=== PATIENT | male | born 1950 | race Caucasian/White ===

== ENCOUNTER 2023-03-17 09:38 | Outpatient (CLI) | payer MEDICARE, BC ==
[2023-03-17 12:19] LABS: BILIRUBIN,URINE NEGATIVE (NEGATIVE); COLOR,URINE YELLOW (YELLOW); LEUKOCYTE ESTERASE ,URINE NEGATIVE (NEGATIVE); NITRITE, URINE NEGATIVE (NEGATIVE); PROTEIN,URINE NEGATIVE (NEGATIVE); UGLUCOSE NEGATIVE (NEGATIVE); UROBILINOGEN,URINE 0.2 EU/dL (0.2)
[2023-03-17 12:37] LABS: BASOPHILS % (AUTO) 0.5 % (0.0-2.0); EOSINOPHILS % (AUTO) 2.6 % (0.0-6.0); HEMATOCRIT 44 % (39-51); HEMOGLOBIN 14.7 g/dL (13.5-17.5); LYMPHOCYTES # (AUTO) 1.8 K/uL (0.8-4.8); LYMPHOCYTES % (AUTO) 27.9 % (20.0-44.0); MEAN CORPUSCULAR HGB CONC 33 g/dl (31.0-36.0); MEAN CORPUSCULAR VOLUME 99 fL (80-96); MONOCYTES # (AUTO) 0.7 K/uL (0.1-1.30); MONOCYTES % (AUTO) 11.7 % (2.0-12.0); NEUTROPHILS # (AUTO) 3.6 K/uL (1.8-8.9); NEUTROPHILS % (AUTO) 57.3 % (43.0-81.0); PLATELET COUNT (AUTO) 314 K/uL (150-450); RED BLOOD CELL COUNT(AUTO) 4.48 MIL/uL (4.5-6.0); WHITE BLOOD COUNT (AUTO) 6.3 K/uL (4.3-11.0)
[2023-03-17 12:41] LABS: POTASSIUM 4.9 mmol/L (3.5-5.1)
[2023-03-26] MEDS ORDERED: HYDR-3972 PO (09:30)
== END 2023-03-17 23:59 | disposition home or self-care (01) ==
LOC: LAB 09:38
PROVIDERS: ATTEND Internal Medicine Pulmonary Disease
DX: Z01.818 Encounter for other preprocedural examination (principal); Z20.822 Contact with and (suspected) exposure to COVID-19
CPT/HCPCS: 71045; 93005; 85025; 80048; 81003; 36415; 85730; U0003; C9803

== ENCOUNTER 2023-03-25 05:38 | Inpatient (IN) | payer MEDICARE, BC ==
[~2023-03-25] VITALS: Ht 177.8 cm; Wt 72.6 kg
[2023-03-25] MEDS ORDERED: OXYMETAZOLINE HCL NASAL SPRAY 30 ML BOTTLE NS ONE (06:51)
[2023-03-25] MEDS ORDERED: ANESTHESIA TRAY IN PYXIS 1 EA TRAY MC ONE (06:52)
[2023-03-25] MEDS ORDERED: DEXAMETHASONE SOD PHOSPHATE 10 MG/ML VIAL ONE (06:52)
[2023-03-25] MEDS ORDERED: LIDOCAINE 2%-EPI 1:100,000 30 ML VIAL ONE (06:52)
[2023-03-25] MEDS ORDERED: VANCOMYCIN 1 GM VIAL ONE (06:52)
[2023-03-25] MEDS ORDERED: MIDAZOLAM HCL 2 MG/2ML VIAL ONE (07:10)
[2023-03-25] MEDS ORDERED: FAMOTIDINE/PF INJ 20 MG/2 ML VIAL IV ONE (07:10)
[2023-03-25] MEDS ORDERED: FENTANYL PF 100MCG/2ML AMPUL ONE (07:10)
[2023-03-25] MEDS ORDERED: KETAMINE HCL (500MG/10ML) 50 MG/ML VIAL ONE (07:10)
[2023-03-25] MEDS ORDERED: ROCURONIUM BROMIDE 50 MG/5 ML ONE (07:11)
--- NOTE | 2023-03-25 07:20 | NUR ---
MS (DAY SURGERY) SQUAD SERGEANT NOTE PATIENT ARRIVED TO THE UNIT AT AROUND 0555, AMBULATORY. ALERT AND ORIENTED X4. ABLE TO MAKE NEEDS KNOWN. AFEBRILE AND NOT IN ANY FORM OF ACUTE DISTRESS. BREATHING EVEN AND NON LABORED. PATIENT IS FOR SURGERY TODAY UNDER DR. Juancarlos SOUZA AT 0730. DIRECTED TO ROOM 308-2. CONSENT FOR PROPOSED PROCEDURE SIGNED AND SECURED. VITALS TAKEN AND RECORDED. INSERTED IV LINE ON LFA 20G-SL, TOLERATED WELL. PATIENT MAINTAINED ON NPO. LAST MEAL INTAKE WAS 03/24/23 AT 1800 AND PATIENT SAID THAT HE TOOK HIS BP MEDS WITH SIPS OF WATER TODAY 03/25/23 AT AROUND 0430. REPORT WAS GIVEN TO OFFSET PRESS OPERATORNOEMY LOVELL AND MENTIONED THAT PATIENT'S LATEST PULSE IS 43. PRE-OP CHECKLIST DONE. PATIENT WAS PICKED UP BY 2 OR STAFFS AT AROUND 0655, IN STABLE CONDITION AND NOT IN ANY FORM OF ACUTE DISTRESS. ALL BELONGING PROPERLY DOCUMENTED TOGETHER WITH ASSIGNED STAFF.
[2023-03-25] MEDS ORDERED: ONDANSETRON HCL/PF 4 MG/2 ML VIAL IV PRN (11:00)
[2023-03-25] MEDS ORDERED: HYDROMORPHONE 1 MG/1 ML DISP.SYRIN IV PRN (11:00)
[2023-03-25] MEDS ORDERED: IV NS 0.9% 1,000 ML IV PRN (11:00)
[2023-03-25] MEDS ORDERED: ACETAMINOPHEN 325 MG TABLET PO PRN (11:00)
--- NOTE | 2023-03-25 11:20 | NUR ---
MS RN NOTES RECEIVED PATIENT FROM SURGERY VIA STRETCHER IN STABLE CONDITION. ALERT/ORIENTED X 4. ON ROOM AIR, NOT IN ANY FORM OF DISTRESS AT THIS TIME. VITAL SIGNS WITHIN NORMAL LIMITS. NO ACTIVE BLEEDING NOTED. PATIENT DENIES DISCOMFORT AT THIS TIME. ORDER RECEIVED AND CARRIED OUT. INFORMED HOSPITALIST LELO OF ADMISSION AND AND PATIENT'S REFERRAL FOR PULMO AND CARDIO. WILL CONTINUE WITH THE PLAN OF CARE.
[2023-03-25] MEDS ORDERED: VALS160T29 PO (11:31)
[2023-03-25 16:00] VITALS: BP 132/87
--- NOTE | 2023-03-25 19:01 | NUR ---
MS RN CLOSING NOTES PATIENT ALERT/ORIENTED X4, ON ROOM AIR WITH EVEN AND UNLABORED BREATHING. NO COMPLAIN OF PAIN VERBALIZED BY THE PATIENT. WITH IV ACCESS ON LEFT FOREARM G#20, PATENT AND INTACT, ON SALINE LOCK. NO ACTIVE BLEEDING NOTED. WILL ENDORSE ACCORDINGLY.
--- NOTE | 2023-03-25 19:30 | NUR ---
MS RN Opening Note Received patient in bed; awake, alert and oriented x 4. On room air; tolerating well. Not in any form of respiratory or cardiac distress. No c/o pain or discomfort. With IV access on left forearm 20g; patent, intact and saline locked. Able to make needs known. Safety precautions implemented: call light and table within reach, side rails up x 3, bed in lowest locked position. Will continue to monitor throughout shift.
[2023-03-25 20:00] VITALS: BP 154/77
--- NOTE | 2023-03-25 20:50 | NUR ---
RN Note Patient with order of NS 1L @ 30 ml/hr; refused to have an IVF infusion. Per patient, he is able to drink clear liquids and don't need ivf.
--- NOTE | 2023-03-26 06:40 | NUR ---
MS RN Closing Note Patient in bed; awake, a/o x 4. Stable on room air. In no acute distress. Denies pain or discomfort. With IV access on left forearm 20g; patent, intact and saline locked. All needs attended. Due med given as ordered. Safety precautions maintained: call light and table within reach, side rails up x 3, bed in lowest locked position. Endorsed to morning shift for continuity of care.
[2023-03-26 07:00] VITALS: BP 111/60
--- NOTE | 2023-03-26 07:40 | NUR ---
MS RN OPENING NOTES RECEIVED PATIENT AWAKE IN BED, A/OX4. ON ROOM AIR, TOLERATING WELL, NOT IN ANY FORM OF RESPIRATORY DISTRESS, WITH NON LABORED, AND EVEN BREATHING PATTERN. NO COMPLAINTS OF PAIN OR DISCOMFORT AT THIS TIME. WITH IV ACCESS ON LEFT FOREARM G#20 PATENT, INTACT, FLUSHING WELL, ON SALINE LOCK. SAFETY PRECAUTIONS MAINTAINED, BED IN LOWEST POSITION, HOB ELEVATED, CALL LIGHT AND TABLE WITHIN EASY REACH, SIDE RAILS UPX3. WILL CONTINUE TO MONITOR AND ASSIST THROUGHOUT THE SHIFT.
[2023-03-26] MEDS ORDERED: HYDR-3972 PO (09:30)
--- NOTE | 2023-03-26 11:06 | NUR ---
RN NOTES: RECEIVED VERBAL ORDER FROM DR LIND ADVANCE DIET TO SOFT. ORDER NOTED AND CARRIED OUT.
--- NOTE | 2023-03-26 12:15 | NUR ---
MS GARMENT INSPECTOR NOTES RECEIVED ORDER FOR DISCHARGE GIVEN BY NESTOR RIVERA FOR DC HOME. PATIENT IS A/O X4, ABLE TO MAKE NEEDS KNOWN. STABLE ON ROOM AIR, NO SOB OR S/S OF DISTRESS NOTED. DISCHARGE INSTRUCTIONS GIVEN, PATIENT WAS INSTRUCTED TO FOLLOW UP WITH DR. SOUZA NEXT WEEK. PATIENT VERBALIZED UNDERSTANDING. ALL BELONGINGS ACCOUNTED FOR, BELONGING SHEET SIGNED. PATIENT DENIES ANY PAIN OR DISCOMFORT AT THIS TIME. IV ACCESS REMOVED. EXIT CARE FOLDER GIVEN TO PATIENT . PATIENT LEFT IN STABLE CONDITION WITH FRIEND VIA PRIVATE CAR.
[2023-03-27] MEDS ORDERED: VALSARTAN 80 MG TABLET PO SCH (09:00)
== END 2023-03-26 14:28 | disposition home or self-care (01) | DRG 141 ==
LOC: DS 05:38 → MED 05:39
PROVIDERS: ADMIT Dentist Oral and Maxillofacial Surgery; ATTEND Nurse Practitioner Acute Care
PROC: 0NBV0ZX Excision of Left Mandible, Open Approach, Diagnostic (ICD-10-PCS; principal; 2023-03-25)
PROC: 0NSR04Z Reposition Maxilla with Internal Fixation Device, Open Approach (ICD-10-PCS; 2023-03-25)
PROC: 0NSV04Z Reposition Left Mandible with Internal Fixation Device, Open Approach (ICD-10-PCS; 2023-03-25)
PROC: 09BQ0ZZ Excision of Right Maxillary Sinus, Open Approach (ICD-10-PCS; 2023-03-25)
PROC: 09BR0ZZ Excision of Left Maxillary Sinus, Open Approach (ICD-10-PCS; 2023-03-25)
PROC: 0NUR07Z Supplement Maxilla with Autologous Tissue Substitute, Open Approach (ICD-10-PCS; 2023-03-25)
PROC: 0WB30ZX Excision of Oral Cavity and Throat, Open Approach, Diagnostic (ICD-10-PCS; 2023-03-25)
PROC: 0NST0ZZ Reposition Right Mandible, Open Approach (ICD-10-PCS; 2023-03-25)
PROC: 0NUT0KZ Supplement Right Mandible with Nonautologous Tissue Substitute, Open Approach (ICD-10-PCS; 2023-03-25)
PROC: 0NBR0ZX Excision of Maxilla, Open Approach, Diagnostic (ICD-10-PCS; 2023-03-25)
DX: D16.5 Benign neoplasm of lower jaw bone (principal); M84.68XA Pathological fracture in other disease, other site, initial encounter for fracture; D16.4 Benign neoplasm of bones of skull and face; M27.2 Inflammatory conditions of jaws; J32.0 Chronic maxillary sinusitis; D49.2 Neoplasm of unspecified behavior of bone, soft tissue, and skin; I10 Essential (primary) hypertension; R94.31 Abnormal electrocardiogram [ECG] [EKG]; I44.1 Atrioventricular block, second degree; Z86.73 Personal history of transient ischemic attack (TIA), and cerebral infarction without residual deficits; Z87.74 Personal history of (corrected) congenital malformations of heart and circulatory system; F17.200 Nicotine dependence, unspecified, uncomplicated; Z79.899 Other long term (current) drug therapy
CPT/HCPCS: 82962-TC; 87081-TC; 88305-TC; 88311-TC; 88312-TC; A4223; C1713; G0378; J1100; J2250; J2370; J2405; J2704; J2765; J3010; J3370; J3490; J7030

== ENCOUNTER 2023-11-11 08:08 | Inpatient (IN) | payer MEDICARE, BC ==
[~2023-11-11] VITALS: Ht 177.8 cm; Wt 71.4 kg
[2023-11-11] VITALS (8 sets, daily range): BP systolic 107–156; BP diastolic 67–85; TEMP 97.7–99.2; O2SAT 97–100
[~2023-11-11 08:08] MED LIST: HYDR-3972 PO; VALS160T29 PO
[2023-11-11] MEDS ORDERED: LIDOCAINE 2%-EPI 1:100,000 30 ML VIAL ONE (09:43)
[2023-11-11] MEDS ORDERED: VANCOMYCIN 1 GM VIAL ONE (09:43)
[2023-11-11] MEDS ORDERED: OXYMETAZOLINE HCL NASAL SPRAY 30 ML BOTTLE NS ONE (09:43)
[2023-11-11] MEDS ORDERED: dexaMETHasone SOD PHOSPHATE 2 ML ONE (09:43)
[2023-11-11] MEDS ORDERED: FENTANYL PF 100MCG/2ML AMPUL ONE (09:52)
[2023-11-11] MEDS ORDERED: FAMOTIDINE/PF INJ 20 MG/2 ML VIAL IV ONE (09:53)
[2023-11-11] MEDS ORDERED: MIDAZOLAM HCL 2 MG/2ML VIAL ONE (09:53)
[2023-11-11] MEDS ORDERED: ROCURONIUM BROMIDE 50 MG/5 ML ONE (09:53)
[2023-11-11] MEDS ORDERED: LABETALOL HCL IV 100MG VIAL ONE (11:18)
[2023-11-11] MEDS ORDERED: IV NS 0.9% 1,000 ML IV PRN (13:00)
[2023-11-11] MEDS ORDERED: ONDANSETRON HCL/PF 4 MG/2 ML VIAL IV PRN (13:00)
[2023-11-11] MEDS ORDERED: ACETAMINOPHEN 325 MG TABLET PO PRN (13:30)
[2023-11-11] MEDS ORDERED: HYDROMORPHONE 1 MG/1 ML DISP.SYRIN IV PRN (13:30)
[2023-11-11] MEDS ORDERED: VANCOMYCIN 1 GM in IV D5W 250ml IV SCH (23:00)
[2023-11-12 08:00] VITALS: BP 112/65; TEMP 97.5; O2SAT 98
== END 2023-11-12 10:00 | disposition home or self-care (01) | DRG 908 ==
LOC: DS 08:08 → MED 08:10
PROVIDERS: ADMIT Internal Medicine; ATTEND Internal Medicine
PROC: 0NPW04Z Removal of Internal Fixation Device from Facial Bone, Open Approach (ICD-10-PCS; principal; 2023-11-12)
PROC: 0NSR04Z Reposition Maxilla with Internal Fixation Device, Open Approach (ICD-10-PCS; 2023-11-12)
PROC: 0NUR07Z Supplement Maxilla with Autologous Tissue Substitute, Open Approach (ICD-10-PCS; 2023-11-12)
PROC: 09BQ0ZZ Excision of Right Maxillary Sinus, Open Approach (ICD-10-PCS; 2023-11-12)
PROC: 0NBR0ZX Excision of Maxilla, Open Approach, Diagnostic (ICD-10-PCS; 2023-11-12)
PROC: 0NBV0ZX Excision of Left Mandible, Open Approach, Diagnostic (ICD-10-PCS; 2023-11-12)
PROC: 0NBT0ZX Excision of Right Mandible, Open Approach, Diagnostic (ICD-10-PCS; 2023-11-12)
DX: T86.831 Bone graft failure (principal); S02.40CK Maxillary fracture, right side, subsequent encounter for fracture with nonunion; T85.79XA Infection and inflammatory reaction due to other internal prosthetic devices, implants and grafts, initial encounter; S02.609K Fracture of mandible, unspecified, subsequent encounter for fracture with nonunion; I10 Essential (primary) hypertension; M27.2 Inflammatory conditions of jaws; Y83.2 Surgical operation with anastomosis, bypass or graft as the cause of abnormal reaction of the patient, or of later complication, without mention of misadventure at the time of the procedure; Z86.73 Personal history of transient ischemic attack (TIA), and cerebral infarction without residual deficits; F17.200 Nicotine dependence, unspecified, uncomplicated; Z79.899 Other long term (current) drug therapy; I34.0 Nonrheumatic mitral (valve) insufficiency; Y92.009 Unspecified place in unspecified non-institutional (private) residence as the place of occurrence of the external cause; J32.9 Chronic sinusitis, unspecified; M89.38 Hypertrophy of bone, other site; Y83.8 Other surgical procedures as the cause of abnormal reaction of the patient, or of later complication, without mention of misadventure at the time of the procedure; X58.XXXD Exposure to other specified factors, subsequent encounter
CPT/HCPCS: 87081-TC; A4223; C1713; G0378; J1100; J2250; J2405; J2704; J2765; J3010; J3370; J3490; J7030; J7060

== ENCOUNTER 2024-03-20 10:00 | Outpatient (CLI) | payer MEDICARE, BC ==
[2024-03-20 11:25] LABS: BASOPHILS % (AUTO) 0.6 % (0.0-2.0); EOSINOPHILS # (AUTO) 0.1 K/uL (0.0-0.7); EOSINOPHILS % (AUTO) 1.9 % (0.0-6.0); HEMATOCRIT 45 % (39-51); HEMOGLOBIN 15.2 g/dL (13.5-17.5); LYMPHOCYTES # (AUTO) 1.6 K/uL (0.8-4.8); LYMPHOCYTES % (AUTO) 22.7 % (20.0-44.0); MEAN CORPUSCULAR HEMOGLOBIN 33 PG (26.0-33.0); MEAN CORPUSCULAR HGB CONC 34 g/dl (31.0-36.0); MEAN CORPUSCULAR VOLUME 96 fL (80-96); MONOCYTES # (AUTO) 0.7 K/uL (0.1-1.30); MONOCYTES % (AUTO) 9.8 % (2.0-12.0); NEUTROPHILS # (AUTO) 4.5 K/uL (1.8-8.9); PLATELET COUNT (AUTO) 277 K/uL (150-450); RED BLOOD CELL COUNT(AUTO) 4.62 MIL/uL (4.5-6.0); RED CELL DISTRIBUTION WIDTH 13.9 % (11.5-15.0)
[2024-03-20 11:32] LABS: INR 1.02 (0.91-1.10); PARTIAL THROMBOPLASTIN TIME 23.2 SEC (24.3-34.3); PROTHROMBIN TIME 10.8 SECS (9.2-11.1)
[2024-03-20 11:39] LABS: ALANINE AMINOTRANSFERASE 17 U/L (12-78); ALBUMIN 3.2 g/dL (3.4-5.0); ALKALINE PHOSPHATASE 74 U/L (46-116); ASPARTATE AMINOTRANSFERASE 9 U/L (15-37); CALCIUM, SERUM 8.7 mg/dL (8.5-10.1); CARBON DIOXIDE 23 mmol/L (21-32); CHLORIDE 104 mmol/L (98-107); GLUCOSE 95 mg/dL (74-106); POTASSIUM 4.3 mmol/L (3.5-5.1); SODIUM SERUM 137 mmol/L (136-145); UREA NITROGEN, BLOOD 15 mg/dL (7-18)
[2024-03-20 11:51] LABS: BILIRUBIN,TOTAL 0.9 mg/dL (0.2-1.0)
== END 2024-03-20 23:59 | disposition home or self-care (01) ==
LOC: LAB 10:00
PROVIDERS: ATTEND Internal Medicine Interventional Cardiology
DX: Z01.812 Encounter for preprocedural laboratory examination (principal); D68.9 Coagulation defect, unspecified
CPT/HCPCS: 36415; 80053-TC; 85025-TC; 85610-TC; 85730-TC

== ENCOUNTER 2024-03-23 10:03 | Day surgery (SDC) | payer MEDICARE, BC | END 2024-03-23 12:00 | disposition home or self-care (01) | LOC: DS 10:03 | PROVIDERS: ATTEND Dentist Oral and Maxillofacial Surgery | DX: T84.69XA Infection and inflammatory reaction due to internal fixation device of other site, initial encounter (principal); Z53.8 Procedure and treatment not carried out for other reasons; X58.XXXA Exposure to other specified factors, initial encounter; Y93.89 Activity, other specified; Y92.89 Other specified places as the place of occurrence of the external cause; Y99.8 Other external cause status; I10 Essential (primary) hypertension; Z98.890 Other specified postprocedural states; Z79.899 Other long term (current) drug therapy ==

== ENCOUNTER 2024-05-18 09:25 | Inpatient (IN) | payer MEDICARE, BC ==
[~2024-05-18] VITALS: Ht 177.8 cm; Wt 76.7 kg
[2024-05-18] MEDS ORDERED: OXYMETAZOLINE HCL NASAL SPRAY 30 ML BOTTLE NS ONE (11:57)
[2024-05-18] MEDS ORDERED: dexaMETHasone SOD PHOSPHATE 2 ML ONE (11:57)
[2024-05-18] MEDS ORDERED: LIDOCAINE 2%-EPI 1:100,000 30 ML VIAL ONE (11:57)
[2024-05-18] MEDS ORDERED: VANCOMYCIN 1 GM in IV D5W 250ml IV ONE (12:00)
[2024-05-18] MEDS ORDERED: SUCCINYLCHOLINE CHLORIDE 20 MG/ML VIAL ONE (12:03)
[2024-05-18] MEDS ORDERED: FENTANYL PF 100MCG/2ML AMPUL ONE (12:03)
[2024-05-18] MEDS ORDERED: ATROPINE SULFATE 1 MG/10 ML DISP.SYRIN ONE ×3 (12:37→12:39)
[2024-05-18] MEDS ORDERED: ONDANSETRON HCL/PF 4 MG/2 ML VIAL IV PRN (14:30)
[2024-05-18] MEDS ORDERED: ACETAMINOPHEN 325 MG TABLET PO PRN (14:30)
[2024-05-18] MEDS ORDERED: HYDROMORPHONE 1 MG/1 ML DISP.SYRIN IV PRN (14:30)
[2024-05-18] MEDS ORDERED: IV NS 0.9% 1,000 ML IV PRN (14:30)
== END 2024-05-18 17:33 | disposition home or self-care (01) | DRG 497 ==
LOC: DS 09:25 → MED 14:49
PROVIDERS: ADMIT Internal Medicine; ATTEND Internal Medicine
PROC: 0NPW04Z Removal of Internal Fixation Device from Facial Bone, Open Approach (ICD-10-PCS; principal; 2024-05-18)
PROC: 0WB30ZX Excision of Oral Cavity and Throat, Open Approach, Diagnostic (ICD-10-PCS; 2024-05-18)
DX: T84.69XA Infection and inflammatory reaction due to internal fixation device of other site, initial encounter (principal); F17.210 Nicotine dependence, cigarettes, uncomplicated; I10 Essential (primary) hypertension; Y83.8 Other surgical procedures as the cause of abnormal reaction of the patient, or of later complication, without mention of misadventure at the time of the procedure; Y92.009 Unspecified place in unspecified non-institutional (private) residence as the place of occurrence of the external cause; K12.30 Oral mucositis (ulcerative), unspecified; K13.70 Unspecified lesions of oral mucosa
CPT/HCPCS: A4223; G0378; J0330; J0461; J0690; J1100; J1170; J2405; J2704; J3010; J3370; J3490; J7030; J7050; J7060